=== PATIENT | male | born 1995 | race Caucasian/White ===

== ENCOUNTER 2019-10-07 12:50 | Emergency (ER) | payer OTHER ==
[~2019-10-07] VITALS: Ht 182.9 cm; Wt 72.5 kg
[2019-10-07] MEDS ORDERED: LIDOCAINE 1% MDV 20ML VIAL SC ONE (14:45)
[2019-10-07] MEDS ORDERED: ceFAZolin SOD 1 GM in D5W MINI-BAG PLUS 50 ML IV ONE (14:45)
[2019-10-07] MEDS ORDERED: KEFL500C17 PO (15:16)
[2019-10-07 15:58] VITALS: BP 120/70
== END 2019-10-07 16:00 | disposition home or self-care (01) ==
LOC: M ED 12:50
DX: S61.210A Laceration without foreign body of right index finger without damage to nail, initial encounter (principal); S62.602B Fracture of unspecified phalanx of right middle finger, initial encounter for open fracture; X58.XXXA Exposure to other specified factors, initial encounter; Y99.1 Military activity
CPT/HCPCS: 12031; 99284; J0690